=== PATIENT | male | born 2000 | race African-American/Black ===

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

== ENCOUNTER 2021-02-01 17:44 | Emergency (ER) | payer OTHER ==
[~2021-02-01] VITALS: Ht 185.4 cm; Wt 81.8 kg
[~2021-02-01 17:44] MED LIST changes: +OMNICEF300 MG PO; +STERAPRED DS 1010 MG PO
[2021-02-01 17:59] VITALS: Ht 185.4 cm; Wt 81.8 kg
[2021-02-01 19:18] LABS: BILIRUBIN NEGATIVE (NEGATIVE); KETONE NEGATIVE (NEGATIVE); NITRITE NEGATIVE (NEGATIVE); UROBILINOGEN NORMAL mg/dL (< 2)
[2021-02-01 20:34] VITALS: BP 129/72
== END 2021-02-01 20:35 | disposition home or self-care (01) ==
LOC: D.ER 17:44
PROVIDERS: Family Medicine
DX: A64 Unspecified sexually transmitted disease (principal); R30.0 Dysuria; K21.9 Gastro-esophageal reflux disease without esophagitis

== ENCOUNTER 2021-02-08 16:28 | Emergency (ER) | payer OTHER ==
[~2021-02-08] VITALS: Ht 185.4 cm; Wt 81.8 kg
[2021-02-08 16:46] VITALS: BP 127/84; Ht 185.4 cm; Wt 81.8 kg
[2021-02-08] MEDS ORDERED: VALTREX1000 MG PO (18:07)
== END 2021-02-08 18:26 | disposition home or self-care (01) ==
LOC: D.ER 16:28
DX: B00.9 Herpesviral infection, unspecified (principal); K21.9 Gastro-esophageal reflux disease without esophagitis

== ENCOUNTER 2021-03-24 10:52 | Emergency (ER) | payer MEDICAID ==
[~2021-03-24] VITALS: Ht 185.4 cm; Wt 81.8 kg
[~2021-03-24 10:52] MED LIST changes: +VALTREX1000 MG PO
[2021-03-24 10:54] VITALS: BP 129/95; Ht 185.4 cm; Wt 81.8 kg
== END 2021-03-24 11:47 | disposition home or self-care (01) ==
LOC: D.ER 10:52
DX: J02.9 Acute pharyngitis, unspecified (principal); K21.9 Gastro-esophageal reflux disease without esophagitis